=== PATIENT | male | born 1950 | race Caucasian/White ===

== ENCOUNTER → 2017-01-11 | Outpatient (REF) | payer MEDICAID ==
[2017-01-11 15:28] LABS: ALBUMIN 3.8 GM/DL (3.2-5.2); ALBUMIN/GLOBULIN RATIO 1.12 (1.00-1.93); ALKALINE PHOSPHATASE 57 U/L (45-117); ALT/SGPT 23 U/L (12-78); ANION GAP 7 MEQ/L (8-16); AST/SGOT 23 U/L (15-37); BILIRUBIN,TOTAL 0.5 MG/DL (0.2-1.0); BLOOD UREA NITROGEN 24 MG/DL (7-18); CALCIUM LEVEL 9.2 MG/DL (8.8-10.2); CARBON DIOXIDE LEVEL 28 MEQ/L (21-32); CHLORIDE LEVEL 109 MEQ/L (98-107); CREATININE FOR GFR 0.94 MG/DL (0.70-1.30); FREE T4 1.09 NG/DL (0.76-1.46); GLOMERULAR FILTRATION RATE > 60.0 (>49); GLUCOSE, FASTING 94 MG/DL (80-110); POTASSIUM SERUM 4.4 MEQ/L (3.5-5.1); SODIUM LEVEL 144 MEQ/L (136-145); TOTAL PROTEIN 7.2 GM/DL (6.4-8.2)
== END ==
LOC: M SFHCPLAZ 10:40
PROVIDERS: ATTEND Nurse Practitioner Family
DX: E78.5 Hyperlipidemia, unspecified (principal); I10 Essential (primary) hypertension; E03.9 Hypothyroidism, unspecified; E55.9 Vitamin D deficiency, unspecified

== ENCOUNTER → 2017-06-29 | Outpatient (REF) | payer MEDICAID ==
[2017-06-29 12:13] LABS: ALBUMIN 3.7 GM/DL (3.2-5.2); ALKALINE PHOSPHATASE 58 U/L (45-117); ALT/SGPT 22 U/L (12-78); ANION GAP 5 MEQ/L (8-16); AST/SGOT 23 U/L (7-37); BILIRUBIN,TOTAL 0.5 MG/DL (0.2-1.0); BLOOD UREA NITROGEN 21 MG/DL (7-18); CARBON DIOXIDE LEVEL 32 MEQ/L (21-32); CHLORIDE LEVEL 107 MEQ/L (98-107); CHOLESTEROL LEVEL 162 MG/DL (<200); CREATININE FOR GFR 0.88 MG/DL (0.70-1.30); GLOMERULAR FILTRATION RATE > 60.0 (>49); GLUCOSE, FASTING 79 MG/DL (80-110); POTASSIUM SERUM 4.4 MEQ/L (3.5-5.1); SODIUM LEVEL 144 MEQ/L (136-145); TOTAL PROTEIN 7.4 GM/DL (6.4-8.2); TRIGLYCERIDES LEVEL 116 MG/DL (<150)
== END ==
LOC: M SFHCPLAZ 08:38
PROVIDERS: ATTEND Nurse Practitioner Family
DX: I10 Essential (primary) hypertension (principal); E03.9 Hypothyroidism, unspecified; E78.5 Hyperlipidemia, unspecified; E55.9 Vitamin D deficiency, unspecified

== ENCOUNTER → 2018-04-24 | Outpatient (REF) | payer MEDICAID ==
[2018-04-24 13:02] LABS: ALBUMIN 3.8 GM/DL (3.2-5.2); ALBUMIN/GLOBULIN RATIO 1.06 (1.00-1.93); ALKALINE PHOSPHATASE 68 U/L (45-117); ALT/SGPT 23 U/L (12-78); ANION GAP 9 MEQ/L (8-16); AST/SGOT 24 U/L (7-37); BILIRUBIN,TOTAL 0.6 MG/DL (0.2-1.0); BLOOD UREA NITROGEN 22 MG/DL (7-18); CALCIUM LEVEL 8.5 MG/DL (8.8-10.2); CARBON DIOXIDE LEVEL 26 MEQ/L (21-32); CHLORIDE LEVEL 110 MEQ/L (98-107); FREE T4 1.15 NG/DL (0.76-1.46); GLOMERULAR FILTRATION RATE > 60.0 (>49); GLUCOSE, FASTING 72 MG/DL (70-100); POTASSIUM SERUM 4.5 MEQ/L (3.5-5.1); PSA SCREENING 0.49 NG/ML (< 4.0); SODIUM LEVEL 145 MEQ/L (136-145); THYROID STIMULATING HORMONE 0.723 uIU/ML (0.358-3.740); TOTAL 25(OH) VITAMIN D 18.6 NG/ML (30.0-100.0); TOTAL PROTEIN 7.4 GM/DL (6.4-8.2)
== END ==
LOC: M SFHCPLAZ 08:48
DX: E78.5 Hyperlipidemia, unspecified (principal); E03.9 Hypothyroidism, unspecified; Z12.5 Encounter for screening for malignant neoplasm of prostate; E55.9 Vitamin D deficiency, unspecified

== ENCOUNTER → 2018-10-22 | Outpatient (REF) | payer MEDICARE, MEDICAID ==
[2018-10-22 13:37] LABS: MALB URINE SIEMENS 76.4 MG/L; MAU/CREAT RATIO 20.2 MCG/MG (0.0-30.0)
[2018-10-22 13:38] LABS: ALBUMIN 3.8 GM/DL (3.2-5.2); ALT/SGPT 25 U/L (12-78); BILIRUBIN,TOTAL 0.4 MG/DL (0.2-1.0); BLOOD UREA NITROGEN 15 MG/DL (7-18); CALCIUM LEVEL 8.6 MG/DL (8.8-10.2); CARBON DIOXIDE LEVEL 28 MEQ/L (21-32); CHLORIDE LEVEL 110 MEQ/L (98-107); CHOLESTEROL LEVEL 174 MG/DL (<200); CHOLESTEROL RISK RATIO 3.625 (<5); CREATININE FOR GFR 0.78 MG/DL (0.70-1.30); GLOMERULAR FILTRATION RATE > 60.0 (>49); GLUCOSE, FASTING 91 MG/DL (70-100); HDL CHOLESTEROL 48 MG/DL (>40); LDL CHOLESTEROL 104 MG/DL (<100); NON-HDL-C 126 MG/DL; POTASSIUM SERUM 3.7 MEQ/L (3.5-5.1); SODIUM LEVEL 144 MEQ/L (136-145); TOTAL 25(OH) VITAMIN D 22.9 NG/ML (30.0-100.0); TRIGLYCERIDES LEVEL 110 MG/DL (<150)
== END ==
LOC: M SFHCPLAZ 09:28
PROVIDERS: ATTEND Nurse Practitioner Family
DX: I10 Essential (primary) hypertension (principal); E78.49 Other hyperlipidemia; Z87.891 Personal history of nicotine dependence; E55.9 Vitamin D deficiency, unspecified; E03.9 Hypothyroidism, unspecified; E66.9 Obesity, unspecified; Z68.35 Body mass index [BMI] 35.0-35.9, adult
CPT/HCPCS: 80053; 80061; 82043; 82306; 84443; G0463

== ENCOUNTER → 2019-07-26 | Outpatient (CLI) | payer MEDICARE, MEDICAID ==
--- NOTE | 2019-07-26 11:18 | REP ---
MRI LUMBAR SPINE WITHOUT CONTRAST: HISTORY: Other spondylosis. Rule out disc herniation. Comparison MRI study of the lumbar spine is from January 11, 2018. Comparison radiographs are from July 19, 2011. TECHNIQUE: Sagittal and axial T1- and T2-weighted scans are acquired in the usual fashion with and without fat saturation. Sequences include spin echo, turbo spin-echo, and STIR imaging sequences. MRI FINDINGS: Lumbar vertebral body heights are preserved. Cortical and medullary bone signal intensity is normal. There are small hemangiomas in the L4 vertebral body, one on each side. This is unchanged. The tip of the conus medullaris remains normal in position and appearance at L1. No extra vertebral abnormality is appreciated. Normal caliber aorta. Axial and sagittal images taken at the L1-L2 disc level demonstrate mild degenerative narrowing of the disc. There is no evidence of disc bulging or protrusion posteriorly. There is anterior discogenic spurring on the right. At L2-3, there is degenerative narrowing and decreased signal intensity. There is diffuse disc bulging effacing the ventral subarachnoid space. There is right foraminal and right lateral disc bulging. There is borderline canal size due to disc bulging and dorsally positioned epidural fat. Midline AP dimension of the thecal sac is 9.5 mm. At L3-L4, there is diffuse disc bulging effacing the ventral margin of the thecal sac. There is mild bilateral foraminal disc bulging. There is mild central canal stenosis at L3-4 due to disc bulging, ligamentum flavum hypertrophy, and mild facet hypertrophy. There is dorsal epidural fat which participates. The mid line AP dimension of the thecal sac is 8.4 mm. The findings are unchanged and L3-4 from the prior study. At L4-L5, there is diffuse disc bulging indenting the ventral margin of the thecal sac. There is right sided mild foraminal narrowing due to disc bulging and facet hypertrophy. Bilateral ligamentum flavum and facet hypertrophy is present. No central canal stenosis is seen however. Findings are felt to be unchanged. At L5-S1, there is bilateral facet hypertrophy. Central disc bulging is present unchanged. No spinal stenosis is seen. No definite foraminal narrowing is seen. IMPRESSION: Degenerative spondylosis changes. Findings unchanged from January 11, 2018. Multilevel foraminal disc bulging. Mild central canal stenosis at L3-4. Electronically Signed by Nawaf Spaulding MD 07/26/2019 11:28 A
== END ==
LOC: M RAD 09:19
PROVIDERS: ATTEND Physical Medicine & Rehabilitation
DX: M47.896 Other spondylosis, lumbar region (principal)

== ENCOUNTER → 2019-08-05 | Outpatient (CLI) | payer MEDICARE, MEDICAID ==
[2019-08-05 17:51] LABS: PLATELET COUNT, AUTOMATED 232 10^3/uL (150-450)
[2019-08-05 17:53] LABS: INR 1.05; PROTHROMBIN TIME 13.4 SECONDS (11.8-14.0)
[2019-08-05 17:54] LABS: PARTIAL THROMBOPLASTIN TIME 31.5 SECONDS (25.0-38.4)
[2019-08-05 18:01] LABS: BLOOD UREA NITROGEN 22 MG/DL (7-18); C REACTIVE PROTEIN QUANTITATIV < 0.30 MG/DL (0.00-0.30); CREATININE FOR GFR 0.85 MG/DL (0.70-1.30); GLOMERULAR FILTRATION RATE > 60.0 (>49); RHEUMATOID FACTOR QUANT < 10.0 IU/ML (<15.0)
== END ==
LOC: M PLALAB 14:53
PROVIDERS: ATTEND Physician Assistant
DX: Z01.812 Encounter for preprocedural laboratory examination (principal); M51.27 Other intervertebral disc displacement, lumbosacral region; M47.817 Spondylosis without myelopathy or radiculopathy, lumbosacral region; Z79.01 Long term (current) use of anticoagulants

== ENCOUNTER → 2019-09-03 | Outpatient (REF) | payer MEDICARE, MEDICAID | LOC: CANPREREF → M SFHCPLAZ 08:31 | PROVIDERS: ATTEND Family Medicine | DX: E53.8 Deficiency of other specified B group vitamins (principal); E55.9 Vitamin D deficiency, unspecified ==

== ENCOUNTER → 2019-09-29 | Outpatient (REF) | payer MEDICARE, MEDICAID ==
[2019-09-29 10:33] LABS: TOTAL 25(OH) VITAMIN D 29.4 NG/ML (30.0-100.0)
== END ==
LOC: M SFHCPLAZ 08:14
PROVIDERS: ATTEND Family Medicine
DX: E53.8 Deficiency of other specified B group vitamins (principal); E55.9 Vitamin D deficiency, unspecified

== ENCOUNTER → 2019-12-22 | Outpatient (CLI) | payer MEDICARE, MEDICAID ==
--- NOTE | 2019-12-25 10:07 | ECHO ---
DATE OF STUDY: 12/22/2019 DATE OF : 1950 AGE: 69 GENDER: Male HEIGHT: 70 inches WEIGHT: 222 pounds BODY SURFACE AREA: 2.17 m2 OUTPATIENT REFERRING PHYSICIAN: Dr. Matthew Dee INDICATION: Edema. MEASUREMENTS 2-D Measurements: RV: 3.8 cm LV: 3.9 cm Septum: 1.2 cm Posterior wall: 1.2 cm Aortic root: 3.6 cm LA: 4.6 cm LVEF: 70% Doppler Measurements: AV: 1.03 m/s LVOT: 1.02 m/s LVOT diameter: 2.1 cm MV - E 58 A 52 EA ratio 1 Early mitral deceleration time: 218 ms E prime medial: 7.7 A prime medial: 9.7 E A prime lateral: 7.4 Average E/E prime ratio: 7.7/ PCWP 11.4 mmHg PV: 0.7 m/s Pulmonary artery acceleration time: 137 ms RVSP: 27 mmHg IVC: 1.8 cm COMMENTS: Sinus bradycardia without intraventricular conduction disturbance. Technically challenging study in light of the patient's body habitus, but diagnostically useful information was still obtained. M-mode and two-dimensional echocardiography was performed with pulsed, continuous wave, color flow and tissue Doppler studies. Borderline concentric left ventricular hypertrophy with hyperkinetic wall motion. Mildly dilated left atrium with current normal Doppler assessment of LV diastolic function and estimated mean left atrial pressure. Normal right heart chamber sizes and motion and current estimated pulmonary arterial pressure. Normal IVC size and collapse against an elevated central venous pressure. Normal aortic root size. Mild aortic valvular sclerosis without stenosis, but mild insufficiency. Mild degenerative changes of the mitral valvular apparatus without inflow tract obstruction, but only mild insufficiency. Normal appearing tricuspid valve with mild insufficiency. No apparent cardiac mass or pericardial effusion.
== END ==
LOC: M CARPUL 08:17
PROVIDERS: ATTEND Family Medicine
DX: R60.0 Localized edema (principal)

== ENCOUNTER → 2020-02-02 | Outpatient (CLI) | payer MEDICARE, MEDICAID ==
[2020-02-02 10:56] LABS: HEMATOCRIT 41.2 % (42.0-52.0); HEMOGLOBIN 13.2 g/dl (13.5-17.5); MEAN CORPUSCULAR HEMOGLOBIN 30.1 pg (27.0-33.0); MEAN CORPUSCULAR VOLUME 93.8 fl (80.0-96.0); PLATELET COUNT, AUTOMATED 211 10^3/uL (150-450); RED BLOOD COUNT 4.39 10^6/uL (4.30-6.10); WHITE BLOOD COUNT 5.6 10^3/uL (4.0-10.0)
[2020-02-02 11:25] LABS: ALT/SGPT 15 U/L (12-78); BILIRUBIN,TOTAL 0.5 MG/DL (0.2-1.0); BLOOD UREA NITROGEN 21 MG/DL (7-18); CALCIUM LEVEL 9.1 MG/DL (8.8-10.2); CARBON DIOXIDE LEVEL 29 MEQ/L (21-32); CHLORIDE LEVEL 106 MEQ/L (98-107); CREATININE FOR GFR 0.83 MG/DL (0.70-1.30); GLOMERULAR FILTRATION RATE > 60.0 (>49); GLUCOSE, FASTING 84 MG/DL (70-100); POTASSIUM SERUM 3.8 MEQ/L (3.5-5.1); SODIUM LEVEL 141 MEQ/L (136-145); TOTAL PROTEIN 7.4 GM/DL (6.4-8.2)
== END ==
LOC: M PLALAB 08:27
PROVIDERS: ATTEND Student in an Organized Health Care Education/Training Program
DX: R60.0 Localized edema (principal)

== ENCOUNTER → 2020-10-15 | Outpatient (CLI) | payer MEDICARE, MEDICAID ==
[2020-10-15 11:19] LABS: PLATELET COUNT, AUTOMATED 208 10^3/uL (150-450)
[2020-10-15 11:26] LABS: INR 1.06
[2020-10-15 11:27] LABS: PARTIAL THROMBOPLASTIN TIME 29.8 SECONDS (24.2-38.5)
== END ==
LOC: M PLALAB 09:28
PROVIDERS: ATTEND Physical Medicine & Rehabilitation
DX: Z01.812 Encounter for preprocedural laboratory examination (principal)

== ENCOUNTER → 2021-04-08 | Outpatient (CLI) | payer MEDICARE, MEDICAID ==
[2021-04-08 11:24] LABS: PLATELET COUNT, AUTOMATED 199 10^3/uL (150-450)
[2021-04-08 11:35] LABS: INR 1.03; PROTHROMBIN TIME 13.9 SECONDS (12.7-14.5)
[2021-04-08 11:36] LABS: PARTIAL THROMBOPLASTIN TIME 33.8 SECONDS (25.9-37.0)
== END ==
LOC: M PLALAB 08:19
PROVIDERS: ATTEND Physical Medicine & Rehabilitation
DX: Z01.812 Encounter for preprocedural laboratory examination (principal)

== ENCOUNTER 2021-09-22 08:32 | Emergency (ER) | payer MEDICARE, MEDICAID ==
[~2021-09-22] VITALS: Ht 177.8 cm; Wt 90.9 kg
[2021-09-22] MEDS ORDERED: CARB25TA9 (08:40)
[2021-09-22] MEDS ORDERED: OFLO3OPSO (08:40)
[2021-09-22] MEDS ORDERED: TRAM50TA2 (08:40)
[2021-09-22] MEDS ORDERED: FLUO1OPD (08:40)
[2021-09-22] MEDS ORDERED: ATOR40TA75 (08:40)
[2021-09-22] MEDS ORDERED: DORZ2SOL5 (08:40)
[2021-09-22] MEDS ORDERED: PANT20TA6 (08:40)
[2021-09-22] MEDS ORDERED: GABA-282 (08:40)
[2021-09-22] MEDS ORDERED: PROP60CA (08:40)
[2021-09-22] MEDS ORDERED: PRIM50TA6 (08:40)
[2021-09-22] MEDS ORDERED: LEVO75TA4 (08:40)
[2021-09-22] MEDS ORDERED: PRAM1TAB7 (08:40)
[2021-09-22] MEDS ORDERED: LOTE5DRO3 (08:40)
[2021-09-22] MEDS ORDERED: CYCL-707 (08:40)
[2021-09-22] MEDS ORDERED: HYDR-3713 (08:40)
[2021-09-22] MEDS ORDERED: ONDANSETRON 4MG/2ML VIAL IV ONE ×2 (09:05→11:25)
[2021-09-22] MEDS ORDERED: NS 1,000 ML IV ONE (09:05)
[2021-09-22] MEDS ORDERED: MORPHINE 4 MG/ML 1ML VIAL/SYRINGE (J2270) IV ONE (09:05)
[2021-09-22 09:22] LABS: BASO # 0.1 10^3/uL (0.0-0.2); EOS # 1.3 10^3/uL (0.0-0.5); EOS % 14.7 % (0.0-3.0); HEMATOCRIT 53.8 % (42.0-52.0); HEMOGLOBIN 17.6 g/dl (13.5-17.5); LYMPH # 1.3 10^3/uL (1.5-5.0); LYMPH % 14.7 % (24.0-44.0); MEAN CORPUSCULAR HEMOGLOBIN 29.7 pg (27.0-33.0); MEAN CORPUSCULAR HGB CONC 32.7 g/dl (32.0-36.5); MEAN CORPUSCULAR VOLUME 90.9 fl (80.0-96.0); MONO % 11.7 % (2.0-8.0); NEUTROPHILS # 4.7 10^3/uL (1.5-8.5); NEUTROPHILS % 54.1 % (36.0-66.0); PLATELET COUNT, AUTOMATED 278 10^3/uL (150-450); RED BLOOD COUNT 5.92 10^6/uL (4.30-6.10); WHITE BLOOD COUNT 8.7 10^3/uL (4.0-10.0)
[2021-09-22 09:31] LABS: ALBUMIN 3.8 GM/DL (3.2-5.2); ALT/SGPT 18 U/L (12-78); BILIRUBIN,DIRECT < 0.1 MG/DL (0.0-0.2); BILIRUBIN,TOTAL 0.6 MG/DL (0.2-1.0); BLOOD UREA NITROGEN 20 MG/DL (7-18); CALCIUM LEVEL 9.5 MG/DL (8.8-10.2); CARBON DIOXIDE LEVEL 30 MEQ/L (21-32); CHLORIDE LEVEL 106 MEQ/L (98-107); CREATININE FOR GFR 1.32 MG/DL (0.70-1.30); GLOMERULAR FILTRATION RATE 57.3 (>49); GLUCOSE, FASTING 134 MG/DL (70-100); LIPASE 82 U/L (73-393); POTASSIUM SERUM 3.6 MEQ/L (3.5-5.1); SODIUM LEVEL 142 MEQ/L (136-145)
[2021-09-22] MEDS ORDERED: ISOVUE-370 76% 100ML VIAL As Ordered ONE (10:03)
[2021-09-22] MEDS: GASTROGRAFIN SOLUTION 30ML PO SCH ×2 (10:15→10:16)
[2021-09-22 13:00] VITALS: BP 104/56
[2021-09-22] MEDS ORDERED: ONDA4TAB6 PO (13:46)
== END 2021-09-22 13:59 | disposition home or self-care (01) ==
LOC: EDBD 08:32 → M ED 08:32
DX: K52.9 Noninfective gastroenteritis and colitis, unspecified (principal); E78.5 Hyperlipidemia, unspecified; K21.9 Gastro-esophageal reflux disease without esophagitis
CPT/HCPCS: 74177; 80048; 80076; 83690; 85025; 93041; 96374; 99285; J2270; J2405; Q9963; Q9967

== ENCOUNTER → 2021-10-03 | Outpatient (CLI) | payer MEDICARE, MEDICAID ==
[~2021-10-03] MED LIST: ATOR40TA75; CARB25TA9; CYCL-707; DORZ2SOL5; FLUO1OPD; GABA-282; HYDR-3713; LEVO75TA4; LOTE5DRO3; OFLO3OPSO; ONDA4TAB6 PO; PANT20TA6; PRAM1TAB7; PRIM50TA6; PROP60CA; TRAM50TA2
[2021-10-03 15:29] LABS: HEMATOCRIT 39.1 % (42.0-52.0); MEAN CORPUSCULAR HEMOGLOBIN 29.8 pg (27.0-33.0); MEAN CORPUSCULAR HGB CONC 33.2 g/dl (32.0-36.5); MEAN CORPUSCULAR VOLUME 89.7 fl (80.0-96.0); PLATELET COUNT, AUTOMATED 189 10^3/uL (150-450); RED BLOOD COUNT 4.36 10^6/uL (4.30-6.10); WHITE BLOOD COUNT 8.2 10^3/uL (4.0-10.0)
[2021-10-03 15:55] LABS: HEMOGLOBIN A1c 5.5 %
[2021-10-03 16:05] LABS: ALBUMIN 3.1 GM/DL (3.2-5.2); ALT/SGPT 9 U/L (12-78); BILIRUBIN,TOTAL 0.4 MG/DL (0.2-1.0); BLOOD UREA NITROGEN 13 MG/DL (7-18); CALCIUM LEVEL 8.8 MG/DL (8.8-10.2); CARBON DIOXIDE LEVEL 29 MEQ/L (21-32); CHLORIDE LEVEL 109 MEQ/L (98-107); CHOLESTEROL LEVEL 151 MG/DL (<200); CHOLESTEROL RISK RATIO 4.441 (<5); CREATININE FOR GFR 0.68 MG/DL (0.70-1.30); GLOMERULAR FILTRATION RATE > 60.0 (>49); GLUCOSE, FASTING 90 MG/DL (70-100); HDL CHOLESTEROL 34 MG/DL (>40); LDL CHOLESTEROL 89 MG/DL (<100); NON-HDL-C 117 MG/DL; POTASSIUM SERUM 4.1 MEQ/L (3.5-5.1); SODIUM LEVEL 144 MEQ/L (136-145); TRIGLYCERIDES LEVEL 142 MG/DL (<150)
[2021-10-03 16:07] LABS: TOTAL 25(OH) VITAMIN D 61.5 NG/ML (30.0-100.0)
== END ==
LOC: M PLALAB 12:08
PROVIDERS: ATTEND Student in an Organized Health Care Education/Training Program
DX: E55.9 Vitamin D deficiency, unspecified (principal); I10 Essential (primary) hypertension; K21.9 Gastro-esophageal reflux disease without esophagitis; E78.49 Other hyperlipidemia; R73.01 Impaired fasting glucose; E03.9 Hypothyroidism, unspecified

== ENCOUNTER → 2021-10-03 | Outpatient (REF) | payer MEDICARE, MEDICAID | LOC: M SFHCPLAZ 11:45 | PROVIDERS: ATTEND Family Medicine | DX: E55.9 Vitamin D deficiency, unspecified (principal); I10 Essential (primary) hypertension; K21.9 Gastro-esophageal reflux disease without esophagitis; E78.49 Other hyperlipidemia; R73.01 Impaired fasting glucose; E03.9 Hypothyroidism, unspecified ==

== ENCOUNTER 2021-12-30 15:26 | Emergency (ER) | payer MEDICARE, MEDICAID ==
[~2021-12-30] VITALS: Ht 177.8 cm; Wt 90.0 kg
[2021-12-30 18:44] LABS: BASO % 0.3 % (0.0-1.0); EOS # 0.4 10^3/uL (0.0-0.5); EOS % 5.6 % (0.0-3.0); HEMATOCRIT 36.4 % (42.0-52.0); HEMOGLOBIN 12.3 g/dl (13.5-17.5); LYMPH # 1.5 10^3/uL (1.5-5.0); LYMPH % 20.9 % (24.0-44.0); MEAN CORPUSCULAR HEMOGLOBIN 30.8 pg (27.0-33.0); MEAN CORPUSCULAR HGB CONC 33.8 g/dl (32.0-36.5); MONO # 0.6 10^3/uL (0.0-0.8); NEUTROPHILS # 4.6 10^3/uL (1.5-8.5); NEUTROPHILS % 63.8 % (36.0-66.0); PLATELET COUNT, AUTOMATED 196 10^3/uL (150-450); WHITE BLOOD COUNT 7.1 10^3/uL (4.0-10.0)
[2021-12-30 19:20] LABS: BLOOD UREA NITROGEN 14 MG/DL (7-18); CALCIUM LEVEL 9.4 MG/DL (8.8-10.2); CARBON DIOXIDE LEVEL 30 MEQ/L (21-32); CHLORIDE LEVEL 108 MEQ/L (98-107); CREATININE FOR GFR 0.71 MG/DL (0.70-1.30); FREE T4 1.07 NG/DL (0.76-1.46); GLOMERULAR FILTRATION RATE > 60.0 (>49); GLUCOSE, FASTING 98 MG/DL (70-100); MAGNESIUM LEVEL 2.3 MG/DL (1.8-2.4); POTASSIUM SERUM 3.7 MEQ/L (3.5-5.1); SODIUM LEVEL 144 MEQ/L (136-145); THYROID STIMULATING HORMONE 0.854 uIU/ML (0.358-3.740)
[2021-12-30 19:30] VITALS: BP 128/66
== END 2021-12-30 19:44 | disposition home or self-care (01) ==
LOC: M ED 15:26
DX: R29.6 Repeated falls (principal); R42 Dizziness and giddiness; I10 Essential (primary) hypertension; G20 Parkinson's disease; Z79.52 Long term (current) use of systemic steroids; Z79.899 Other long term (current) drug therapy

== ENCOUNTER → 2022-07-07 | Outpatient (CLI) | payer MEDICARE, MEDICAID ==
[2022-07-07 15:22] LABS: HEMOGLOBIN 12.3 g/dl (13.5-17.5); MEAN CORPUSCULAR HEMOGLOBIN 29.5 pg (27.0-33.0); MEAN CORPUSCULAR HGB CONC 31.5 g/dl (32.0-36.5); MEAN CORPUSCULAR VOLUME 93.5 fl (80.0-96.0); PLATELET COUNT, AUTOMATED 178 10^3/uL (150-450); RED BLOOD COUNT 4.17 10^6/uL (4.30-6.10); WHITE BLOOD COUNT 7.3 10^3/uL (4.0-10.0)
[2022-07-07 15:42] LABS: ALBUMIN 3.1 G/DL (3.2-5.2); ALKALINE PHOSPHATASE 68 U/L (46-116); ALT/SGPT < 9 U/L (7.0-40); AST/SGOT 22 U/L (<34); BILIRUBIN,TOTAL 0.3 MG/DL (0.3-1.2); BLOOD UREA NITROGEN 15 MG/DL (9-23); CALCIUM LEVEL 8.5 MG/DL (8.3-10.6); CARBON DIOXIDE LEVEL 28 MMOL/L (20-31); CHLORIDE LEVEL 106 MMOL/L (98-107); CHOLESTEROL LEVEL 145 MG/DL (<200); CHOLESTEROL RISK RATIO 3.44 (<5); CREATININE FOR GFR 0.68 MG/DL (0.70-1.30); GLOMERULAR FILTRATION RATE > 60.0 (>49); GLUCOSE, FASTING 110 MG/DL (74-106); HDL CHOLESTEROL 42.1 MG/DL (>40); LDL CHOLESTEROL 75.5 MG/DL (<100); NON-HDL-C 103 MG/DL; POTASSIUM SERUM 4.3 MMOL/L (3.5-5.1); SODIUM LEVEL 144 MMOL/L (136-145); TOTAL PROTEIN 6.2 G/DL (5.7-8.2); TRIGLYCERIDES LEVEL 137 MG/DL (<150)
[2022-07-07 15:44] LABS: TOTAL 25(OH) VITAMIN D 53.4 NG/ML (20.0-100.0)
[2022-07-07 15:45] LABS: THYROID STIMULATING HORMONE 1.414 uIU/ML (0.55-4.78)
[2022-07-07 16:19] LABS: HEMOGLOBIN A1c 5.3 % (4.0-6.0)
== END ==
LOC: M PLALAB 14:41
PROVIDERS: ATTEND Student in an Organized Health Care Education/Training Program
DX: E55.9 Vitamin D deficiency, unspecified (principal); E03.9 Hypothyroidism, unspecified; R73.01 Impaired fasting glucose; E78.5 Hyperlipidemia, unspecified; Z79.899 Other long term (current) drug therapy

== ENCOUNTER → 2022-08-07 | Outpatient (CLI) | payer MEDICARE, MEDICAID ==
[~2022-08-07] MED LIST changes: +GASTROGRAFIN SOLUTION 30ML As Ordered ONE; +ISOVUE-370 76% 100ML VIAL As Ordered ONE
== END ==
LOC: M RAD 07-21 13:50
PROVIDERS: ATTEND Student in an Organized Health Care Education/Training Program
DX: R10.32 Left lower quadrant pain (principal)
CPT/HCPCS: 74177; Q9963; Q9967

== ENCOUNTER 2023-02-23 12:06 | Emergency (ER) | payer MEDICARE, MEDICAID ==
[~2023-02-23] VITALS: Ht 180.3 cm; Wt 95.5 kg
[~2023-02-23 12:06] MED LIST changes: -GASTROGRAFIN SOLUTION 30ML As Ordered ONE; -ISOVUE-370 76% 100ML VIAL As Ordered ONE; -LOTE5DRO3; +LOTE5DRO9; -OFLO3OPSO; +OFLO5DRO
[2023-02-23 12:24] VITALS: TEMP 96
[2023-02-23] MEDS ORDERED: GABAPENTIN 300 MG CAP PO STA (13:02)
[2023-02-23] MEDS ORDERED: SINEMET 25-100 MG TAB PO STA (13:02)
[2023-02-23 15:24] VITALS: O2SAT 94
[2023-02-23 15:34] VITALS: BP 151/79; O2SAT 97
== END 2023-02-23 15:41 | disposition home or self-care (01) ==
LOC: M ED 12:06
DX: S70.02XA Contusion of left hip, initial encounter (principal); S90.01XA Contusion of right ankle, initial encounter; S90.02XA Contusion of left ankle, initial encounter; W19.XXXA Unspecified fall, initial encounter; Y92.009 Unspecified place in unspecified non-institutional (private) residence as the place of occurrence of the external cause; Y93.89 Activity, other specified; Y99.8 Other external cause status; G20 Parkinson's disease; E78.5 Hyperlipidemia, unspecified; K21.9 Gastro-esophageal reflux disease without esophagitis; Z79.899 Other long term (current) drug therapy

== ENCOUNTER 2023-03-12 10:34 | Inpatient (IN) | payer MEDICARE, MEDICAID ==
[~2023-03-12] VITALS: Ht 177.8 cm; Wt 86.5 kg
[~2023-03-12 10:34] MED LIST changes: -ATOR40TA75; +ATOR40TA75 PO; -CARB25TA9; +CARB25TA9 PO; -CYCL-707; +CYCL-707 PO; -DORZ2SOL5; +DORZ2SOL5 OU; -FLUO1OPD; +FLUO1OPD OU; -GABA-282; +GABA-282 PO; -HYDR-3713; +HYDR-3713 PO; -LEVO75TA4; +LEVO75TA4 PO; -OFLO5DRO; +OFLO5DRO OU; -PANT20TA6; +PANT20TA6 PO; -PRAM1TAB7; +PRAM1TAB7 PO; -PRIM50TA6; +PRIM50TA6 PO; -PROP60CA; +PROP60CA PO; -TRAM50TA2; +TRAM50TA2 PO
[2023-03-12 12:38] LABS: HEMATOCRIT 48.1 % (42.0-52.0); HEMOGLOBIN 16.1 g/dl (13.5-17.5); MEAN CORPUSCULAR HEMOGLOBIN 30.1 pg (27.0-33.0); MEAN CORPUSCULAR HGB CONC 33.5 g/dl (32.0-36.5); MEAN CORPUSCULAR VOLUME 90.1 fl (80.0-96.0); PLATELET COUNT, AUTOMATED 290 10^3/uL (150-450); RED BLOOD COUNT 5.34 10^6/uL (4.30-6.10); WHITE BLOOD COUNT 10.1 10^3/uL (4.0-10.0)
[2023-03-12] MEDS ORDERED: ONDANSETRON 4MG 2ML VIAL IV ONE ×2 (12:40→15:20)
[2023-03-12 13:01] LABS: LIPASE 19 U/L (12-53)
[2023-03-12 13:03] LABS: ALBUMIN 3.4 G/DL (3.2-5.2); ALKALINE PHOSPHATASE 101 U/L (46-116); ALT/SGPT 11 U/L (7.0-40); AST/SGOT < 8 U/L (<34); BILIRUBIN,DIRECT 0.2 MG/DL (<0.4); BILIRUBIN,TOTAL 0.4 MG/DL (0.3-1.2); BLOOD UREA NITROGEN 32 MG/DL (9-23); CALCIUM LEVEL 8.9 MG/DL (8.3-10.6); CARBON DIOXIDE LEVEL 28 MMOL/L (20-31); CHLORIDE LEVEL 103 MMOL/L (98-107); GLOMERULAR FILTRATION RATE > 60.0 (>42); GLUCOSE, FASTING 114 MG/DL (74-106); POTASSIUM SERUM 3.6 MMOL/L (3.5-5.1); SODIUM LEVEL 140 MMOL/L (136-145); TOTAL PROTEIN 6.7 G/DL (5.7-8.2)
[2023-03-12 13:11] LABS: ATYPICAL LYMPH 9 % (0-5); EOSINOPHILS 7 % (0-3); LYMPHOCYTES 12 % (16-44); MONOCYTES 8 % (0-5); NEUTROPHILS 61 % (28-66); PLATELET ESTIMATE NORMAL (NORMAL)
[2023-03-12] MEDS: NS 1,000 ML IV SCH ×2 (13:27→22:40)
[2023-03-12] MEDS: GASTROGRAFIN SOLUTION 30ML PO SCH ×2 (13:58→14:35)
[2023-03-12] MEDS ORDERED: ISOVUE-370 76% 100ML VIAL As Ordered ONE (15:09)
[2023-03-12 16:33] LABS: CK-MB VALUE MASS 5.4 NG/ML (<3.6); CPK CREATINE PHOSPHOKINASE 131 U/L (46-171); MAGNESIUM LEVEL 1.5 MG/DL (1.8-2.4); MB/CK RELATIVE INDEX 4.12 (< OR =4); PHOSPHORUS LEVEL 4.2 MG/DL (2.4-5.1)
[2023-03-12] MEDS ORDERED: MAGNESIUM OXIDE 400MG TAB (MAG-OX) PO ONE (16:40)
[2023-03-12] MEDS ORDERED: GABAPENTIN 300 MG CAP PO ONE (16:45)
[2023-03-12] MEDS ORDERED: **NOTE PATIENT COMMENT** MISC XX SCH (17:20)
[2023-03-12] MEDS ORDERED: ACETAMINOPHEN 500 MG TAB PO PRN (17:30)
[2023-03-12] MEDS ORDERED: NORCO, ANEXSIA 5/325MG TABLET (HYDROcodone/ACETAMINOPHEN) PO PRN ×2 (17:30)
[2023-03-12] MEDS: LR 1,000 ML IV SCH (17:53)
[2023-03-12 18:32] LABS: RSV AMPLIFICATION NEGATIVE (NEGATIVE)
[2023-03-12] MEDS ORDERED: MED REC IN PROGRESS XX SCH (19:00)
[2023-03-12] MEDS ORDERED: CYCLOBENZAPRINE 10MG TABLET PO PRN (21:00)
[2023-03-12 21:06] VITALS: BP 155/81; TEMP 98.1; O2SAT 99
[2023-03-12] MEDS ORDERED: LOTE5DRO9 OU (22:05)
[2023-03-12] MEDS ORDERED: HYPR15DR3 OP (22:11)
[2023-03-12 22:16] VITALS: BP 147/83; O2SAT 97
[2023-03-12] MEDS ORDERED: HOME MED LIST COMPLETE! XX SCH (22:25)
[2023-03-12 23:00] VITALS: BP 177/90; O2SAT 98
[2023-03-12] MEDS: MAG SULF 1GM/100ML (MAG RUN) 1 GM in IV 1 EA IV SCH (23:49)
[2023-03-12 23:51] LABS: MB/CK RELATIVE INDEX 4.54 (< OR =4)
[2023-03-12] MEDS: GABAPENTIN 300 MG CAP PO SCH (23:56)
[2023-03-13] VITALS: BP 138/81; TEMP 97.5; O2SAT 98
[2023-03-13] MEDS: PRAMIPEXOLE 0.25 MG TAB PO SCH ×4 (00:49→21:00)
[2023-03-13] MEDS: PRIMIDONE 50MG TAB PO SCH ×3 (00:49→21:00)
[2023-03-13] MEDS ORDERED: REFR0.5D8 OU (01:01)
[2023-03-13] MEDS: MAG SULF 1GM/100ML (MAG RUN) 1 GM in IV 1 EA IV SCH (01:02)
[2023-03-13] MEDS: LR 1,000 ML IV SCH ×3 (02:48→18:34)
[2023-03-13 03:35] LABS: POTASSIUM SERUM 3.2 MMOL/L (3.5-5.1)
[2023-03-13 04:00] VITALS: BP 102/57; TEMP 97.9; O2SAT 97
[2023-03-13] MEDS: KCL 10MEQ/100ML SWI (KRUN) 10 MEQ in IV 1 EA IV SCH ×3 (04:50→08:34)
[2023-03-13] MEDS: SINEMET 25-100 MG TAB PO SCH ×4 (06:30→20:00)
[2023-03-13] MEDS: LEVOTHYROXINE 75MCG TABLET (0.075MG) PO SCH (06:30)
[2023-03-13] MEDS ORDERED: FIDA200TA PO (07:00)
[2023-03-13 07:23] LABS: HEMATOCRIT 39.4 % (42.0-52.0); MEAN CORPUSCULAR HEMOGLOBIN 30.1 pg (27.0-33.0); MEAN CORPUSCULAR HGB CONC 33.5 g/dl (32.0-36.5); PLATELET COUNT, AUTOMATED 230 10^3/uL (150-450); RED BLOOD COUNT 4.38 10^6/uL (4.30-6.10); WHITE BLOOD COUNT 8.1 10^3/uL (4.0-10.0)
[2023-03-13 07:24] LABS: HEMOGLOBIN 13.2 g/dl (13.5-17.5)
[2023-03-13 07:52] LABS: BLOOD UREA NITROGEN 25 MG/DL (9-23); CALCIUM LEVEL 7.6 MG/DL (8.3-10.6); CARBON DIOXIDE LEVEL 29 MMOL/L (20-31); CHLORIDE LEVEL 102 MMOL/L (98-107); CK-MB VALUE MASS 2.6 NG/ML (<3.6); CPK CREATINE PHOSPHOKINASE 67 U/L (46-171); CREATININE FOR GFR 0.67 MG/DL (0.70-1.30); GLOMERULAR FILTRATION RATE > 60.0 (>42); GLUCOSE, FASTING 116 MG/DL (74-106); MAGNESIUM LEVEL 1.9 MG/DL (1.8-2.4); MB/CK RELATIVE INDEX 3.88 (< OR =4); POTASSIUM SERUM 3.8 MMOL/L (3.5-5.1); SODIUM LEVEL 139 MMOL/L (136-145)
[2023-03-13 08:28] VITALS: BP 135/74; TEMP 96.6; O2SAT 96
[2023-03-13] MEDS: ATORVASTATIN 20 MG TAB PO SCH (08:28)
[2023-03-13] MEDS: GABAPENTIN 300 MG CAP PO SCH ×3 (08:28→21:00)
[2023-03-13] MEDS: PROPRANOLOL 60MG LA CAP PO SCH (08:29)
[2023-03-13] MEDS: ENOXAPARIN 40MG/0.4ML SYRINGE (J1650 PER 10MG) SC SCH (08:30)
[2023-03-13] MEDS: PANTOPRAZOLE 20 MG TAB PO SCH (08:34)
[2023-03-13] MEDS: FIDAXOMICIN 200 MG TAB (DIFICID) PO SCH ×2 (10:37→21:00)
[2023-03-13 11:00] VITALS: BP 107/58; TEMP 97.3; O2SAT 99
[2023-03-13] MEDS ORDERED: POLYVINYL ALCOHOL OPHTH SOLN 15ML (LIQUITEARS) OU PRN (12:45)
[2023-03-13] MEDS: ONDANSETRON 4MG 2ML VIAL IV PRN ×2 (13:42→18:34)
[2023-03-13 15:44] VITALS: BP 133/72; TEMP 96.3; O2SAT 96
[2023-03-13 16:36] LABS: CK-MB VALUE MASS 2.7 NG/ML (<3.6)
[2023-03-13 16:39] LABS: MB/CK RELATIVE INDEX 4.02 (< OR =4)
[2023-03-13 19:56] VITALS: BP 130/62; TEMP 96.9; O2SAT 77; O2SAT 97
[2023-03-13] MEDS ORDERED: PROCHLORPERAZINE 10MG 2ML VIAL IV PRN (20:10)
[2023-03-13] MEDS: OFLOXACIN 0.3 % (OCUFLOX) OPTH SOL 5ML OU SCH (21:00)
[2023-03-13] MEDS: COSOPT OCUMETER PLUS 10ML (DORZOLAMIDE/TIMOLOL) OU SCH (21:00)
[2023-03-13] MEDS: FLUOROMETHOLONE 0.1% OPHTH SUSP 5ML BTL OU SCH (21:00)
[2023-03-14] MEDS: LR 1,000 ML IV SCH (01:53)
[2023-03-14 04:00] VITALS: BP 110/67; TEMP 96.9; O2SAT 100
[2023-03-14] MEDS: LEVOTHYROXINE 75MCG TABLET (0.075MG) PO SCH (05:12)
[2023-03-14 05:17] LABS: HEMATOCRIT 42.3 % (42.0-52.0); HEMOGLOBIN 13.9 g/dl (13.5-17.5); MEAN CORPUSCULAR HGB CONC 32.9 g/dl (32.0-36.5); MEAN CORPUSCULAR VOLUME 91.2 fl (80.0-96.0); PLATELET COUNT, AUTOMATED 143 10^3/uL (150-450); RED BLOOD COUNT 4.64 10^6/uL (4.30-6.10)
[2023-03-14] MEDS: SINEMET 25-100 MG TAB PO SCH ×4 (06:10→17:58)
[2023-03-14 06:18] LABS: BLOOD UREA NITROGEN 13 MG/DL (9-23); CALCIUM LEVEL 8.4 MG/DL (8.3-10.6); CARBON DIOXIDE LEVEL 29 MMOL/L (20-31); CHLORIDE LEVEL 105 MMOL/L (98-107); CREATININE FOR GFR 0.58 MG/DL (0.70-1.30); GLOMERULAR FILTRATION RATE > 60.0 (>42); GLUCOSE, FASTING 99 MG/DL (74-106); MAGNESIUM LEVEL 1.9 MG/DL (1.8-2.4); SODIUM LEVEL 141 MMOL/L (136-145)
[2023-03-14 08:00] VITALS: BP 120/62; TEMP 97.4; O2SAT 95
[2023-03-14] MEDS: OFLOXACIN 0.3 % (OCUFLOX) OPTH SOL 5ML OU SCH ×2 (08:46→20:12)
[2023-03-14] MEDS: FLUOROMETHOLONE 0.1% OPHTH SUSP 5ML BTL OU SCH ×2 (08:46→20:12)
[2023-03-14] MEDS: FIDAXOMICIN 200 MG TAB (DIFICID) PO SCH ×2 (08:47→20:12)
[2023-03-14] MEDS: ENOXAPARIN 40MG/0.4ML SYRINGE (J1650 PER 10MG) SC SCH (08:47)
[2023-03-14] MEDS: GABAPENTIN 300 MG CAP PO SCH ×3 (08:48→20:11)
[2023-03-14] MEDS: ATORVASTATIN 20 MG TAB PO SCH (08:48)
[2023-03-14] MEDS: PRAMIPEXOLE 0.25 MG TAB PO SCH ×3 (08:48→20:12)
[2023-03-14] MEDS: PANTOPRAZOLE 20 MG TAB PO SCH (08:48)
[2023-03-14] MEDS: COSOPT OCUMETER PLUS 10ML (DORZOLAMIDE/TIMOLOL) OU SCH ×2 (08:49→20:12)
[2023-03-14] MEDS: PRIMIDONE 50MG TAB PO SCH ×2 (08:51→20:28)
[2023-03-14 08:52] VITALS: BP 120/62
[2023-03-14] MEDS: PROPRANOLOL 60MG LA CAP PO SCH (08:52)
[2023-03-14 15:27] VITALS: BP 135/65; TEMP 96.8; O2SAT 97
[2023-03-14] MEDS: ONDANSETRON 4MG 2ML VIAL IV PRN ×2 (15:36→22:28)
[2023-03-14] MEDS: LACTOBACILLUS ACIDOPHILUS CAP (BACID) PO SCH (17:57)
[2023-03-14 20:00] VITALS: BP 131/65; TEMP 96.9; O2SAT 97
[2023-03-14 23:11] VITALS: BP 130/68; TEMP 97.9; O2SAT 99
[2023-03-15 06:00] VITALS: BP 129/69; TEMP 99.3; O2SAT 99
[2023-03-15] MEDS: LEVOTHYROXINE 75MCG TABLET (0.075MG) PO SCH (06:20)
[2023-03-15] MEDS: SINEMET 25-100 MG TAB PO SCH ×2 (06:20→09:17)
[2023-03-15 06:33] LABS: HEMATOCRIT 38.8 % (42.0-52.0); HEMOGLOBIN 12.5 g/dl (13.5-17.5); MEAN CORPUSCULAR HEMOGLOBIN 29.4 pg (27.0-33.0); MEAN CORPUSCULAR HGB CONC 32.2 g/dl (32.0-36.5); MEAN CORPUSCULAR VOLUME 91.3 fl (80.0-96.0); PLATELET COUNT, AUTOMATED 173 10^3/uL (150-450); RED BLOOD COUNT 4.25 10^6/uL (4.30-6.10); WHITE BLOOD COUNT 10.6 10^3/uL (4.0-10.0)
[2023-03-15 06:51] LABS: BLOOD UREA NITROGEN 9 MG/DL (9-23); CARBON DIOXIDE LEVEL 30 MMOL/L (20-31); CHLORIDE LEVEL 103 MMOL/L (98-107); CREATININE FOR GFR 0.61 MG/DL (0.70-1.30); GLOMERULAR FILTRATION RATE > 60.0 (>42); GLUCOSE, FASTING 85 MG/DL (74-106); MAGNESIUM LEVEL 1.7 MG/DL (1.8-2.4); POTASSIUM SERUM 3.6 MMOL/L (3.5-5.1); SODIUM LEVEL 140 MMOL/L (136-145)
[2023-03-15] MEDS ORDERED: FIDA200TA PO (07:28)
[2023-03-15] MEDS ORDERED: MAGN400T2 PO (07:30)
[2023-03-15] MEDS ORDERED: RISATAB3 PO (07:30)
[2023-03-15] MEDS ORDERED: MAG SULF 1GM/100ML (MAG RUN) 1 GM in IV 1 EA IV ONE (09:00)
[2023-03-15] MEDS ORDERED: MAGNESIUM OXIDE 400MG TAB (MAG-OX) PO SCH (09:00)
[2023-03-15] MEDS: ENOXAPARIN 40MG/0.4ML SYRINGE (J1650 PER 10MG) SC SCH (09:16)
[2023-03-15] MEDS: FIDAXOMICIN 200 MG TAB (DIFICID) PO SCH (09:17)
[2023-03-15] MEDS: PRIMIDONE 50MG TAB PO SCH (09:17)
[2023-03-15] MEDS: GABAPENTIN 300 MG CAP PO SCH (09:17)
[2023-03-15] MEDS: PRAMIPEXOLE 0.25 MG TAB PO SCH (09:17)
[2023-03-15] MEDS: PROPRANOLOL 60MG LA CAP PO SCH (09:17)
[2023-03-15] MEDS: LACTOBACILLUS ACIDOPHILUS CAP (BACID) PO SCH (09:17)
[2023-03-15] MEDS: ATORVASTATIN 20 MG TAB PO SCH (09:17)
[2023-03-15] MEDS: PANTOPRAZOLE 20 MG TAB PO SCH (09:17)
[2023-03-15] MEDS: COSOPT OCUMETER PLUS 10ML (DORZOLAMIDE/TIMOLOL) OU SCH (09:18)
[2023-03-15] MEDS: OFLOXACIN 0.3 % (OCUFLOX) OPTH SOL 5ML OU SCH (09:18)
[2023-03-15] MEDS: FLUOROMETHOLONE 0.1% OPHTH SUSP 5ML BTL OU SCH (09:18)
== END 2023-03-15 10:57 | disposition home health service (06) | DRG 372 ==
LOC: M ED 10:34 → EDBD 10:34 → M ED INP 17:17 → M ICU 20:56 → M MSPAV 03-14 23:05
PROVIDERS: ADMIT Family Medicine; ATTEND Internal Medicine
PROC: B246ZZZ Ultrasonography of Right and Left Heart (ICD-10-PCS; principal; 2023-03-12)
DX: A04.72 Enterocolitis due to Clostridium difficile, not specified as recurrent (principal); I47.20 Ventricular tachycardia, unspecified; G20 Parkinson's disease; E83.42 Hypomagnesemia; E86.0 Dehydration; E78.5 Hyperlipidemia, unspecified; E66.01 Morbid (severe) obesity due to excess calories; M54.9 Dorsalgia, unspecified; G89.29 Other chronic pain; R53.1 Weakness; I10 Essential (primary) hypertension; E87.6 Hypokalemia; E03.9 Hypothyroidism, unspecified; M47.812 Spondylosis without myelopathy or radiculopathy, cervical region; K21.9 Gastro-esophageal reflux disease without esophagitis; Z87.891 Personal history of nicotine dependence; Z79.890 Hormone replacement therapy

== ENCOUNTER → 2023-03-16 | Outpatient (CLI) | payer MEDICARE, MEDICAID ==
[~2023-03-16] MED LIST changes: +FIDA200TA PO; +HYPR15DR3 OP; +LOTE5DRO9 OU; +MAGN400T2 PO; +REFR0.5D8 OU; +RISATAB3 PO
[2023-03-16 14:01] LABS: BASO # 0.1 10^3/uL (0.0-0.2); BASO % 0.6 % (0.0-1.0); EOS # 3.6 10^3/uL (0.0-0.5); HEMATOCRIT 43.7 % (42.0-52.0); HEMOGLOBIN 14.3 g/dl (13.5-17.5); LYMPH # 2.4 10^3/uL (1.5-5.0); LYMPH % 18.8 % (24.0-44.0); MEAN CORPUSCULAR HEMOGLOBIN 29.9 pg (27.0-33.0); MEAN CORPUSCULAR HGB CONC 32.7 g/dl (32.0-36.5); MEAN CORPUSCULAR VOLUME 91.4 fl (80.0-96.0); MONO # 0.8 10^3/uL (0.0-0.8); MONO % 6.1 % (2.0-8.0); NEUTROPHILS # 5.6 10^3/uL (1.5-8.5); NEUTROPHILS % 44.9 % (36.0-66.0); PLATELET COUNT, AUTOMATED 161 10^3/uL (150-450); RED BLOOD COUNT 4.78 10^6/uL (4.30-6.10); WHITE BLOOD COUNT 12.5 10^3/uL (4.0-10.0)
[2023-03-16 14:21] LABS: ALBUMIN 3.2 G/DL (3.2-5.2); ALKALINE PHOSPHATASE 86 U/L (46-116); ALT/SGPT 9 U/L (7.0-40); AST/SGOT 21 U/L (<34); BILIRUBIN,TOTAL 0.4 MG/DL (0.3-1.2); BLOOD UREA NITROGEN 9 MG/DL (9-23); CALCIUM LEVEL 8.7 MG/DL (8.3-10.6); CARBON DIOXIDE LEVEL 26 MMOL/L (20-31); CHLORIDE LEVEL 102 MMOL/L (98-107); CREATININE FOR GFR 0.57 MG/DL (0.70-1.30); GLOMERULAR FILTRATION RATE > 60.0 (>42); GLUCOSE, FASTING 74 MG/DL (74-106); POTASSIUM SERUM 4.1 MMOL/L (3.5-5.1); SODIUM LEVEL 138 MMOL/L (136-145); TOTAL PROTEIN 6.5 G/DL (5.7-8.2)
[2023-03-16 14:38] LABS: EOS % 28.4 % (0.0-3.0)
== END ==
LOC: M PLALAB 10:43
PROVIDERS: ATTEND Student in an Organized Health Care Education/Training Program
DX: E83.42 Hypomagnesemia (principal); E87.6 Hypokalemia; A04.72 Enterocolitis due to Clostridium difficile, not specified as recurrent

== ENCOUNTER → 2023-05-29 | Outpatient (CLI) | payer MEDICARE, MEDICAID ==
[2023-05-29 15:39] LABS: BASO % 0.5 % (0.0-1.0); EOS # 1.4 10^3/uL (0.0-0.5); EOS % 16.2 % (0.0-3.0); HEMATOCRIT 41.7 % (42.0-52.0); HEMOGLOBIN 13.1 g/dl (13.5-17.5); LYMPH # 1.6 10^3/uL (1.5-5.0); LYMPH % 18.9 % (24.0-44.0); MEAN CORPUSCULAR HEMOGLOBIN 29.7 pg (27.0-33.0); MEAN CORPUSCULAR HGB CONC 31.4 g/dl (32.0-36.5); MEAN CORPUSCULAR VOLUME 94.6 fl (80.0-96.0); MONO # 0.7 10^3/uL (0.0-0.8); MONO % 7.7 % (2.0-8.0); NEUTROPHILS # 4.7 10^3/uL (1.5-8.5); NEUTROPHILS % 56.1 % (36.0-66.0); PLATELET COUNT, AUTOMATED 254 10^3/uL (150-450); RED BLOOD COUNT 4.41 10^6/uL (4.30-6.10); WHITE BLOOD COUNT 8.4 10^3/uL (4.0-10.0)
[2023-05-29 15:43] LABS: ALBUMIN 3.7 G/DL (3.2-5.2); ALKALINE PHOSPHATASE 75 U/L (46-116); ALT/SGPT < 9 U/L (7.0-40); AST/SGOT 19 U/L (<34); BILIRUBIN,TOTAL 0.3 MG/DL (0.3-1.2); BLOOD UREA NITROGEN 20 MG/DL (9-23); CALCIUM LEVEL 9.3 MG/DL (8.3-10.6); CARBON DIOXIDE LEVEL 32 MMOL/L (20-31); CHLORIDE LEVEL 107 MMOL/L (98-107); CHOLESTEROL LEVEL 169 MG/DL (<200); CHOLESTEROL RISK RATIO 3.49 (<5); CREATININE FOR GFR 0.66 MG/DL (0.70-1.30); GLOMERULAR FILTRATION RATE > 60.0 (>42); GLUCOSE, FASTING 88 MG/DL (74-106); HDL CHOLESTEROL 48.4 MG/DL (>40); LDL CHOLESTEROL 86.8 MG/DL (<100); NON-HDL-C 120.6 MG/DL; POTASSIUM SERUM 4.3 MMOL/L (3.5-5.1); SODIUM LEVEL 142 MMOL/L (136-145); TOTAL PROTEIN 6.9 G/DL (5.7-8.2); TRIGLYCERIDES LEVEL 169 MG/DL (<150)
[2023-05-29 15:44] LABS: FREE T4 0.95 NG/DL (0.89-1.76); THYROID STIMULATING HORMONE 0.428 uIU/ML (0.55-4.78)
[2023-05-29 15:45] LABS: HEMOGLOBIN A1c 5.1 % (4.0-6.0)
== END ==
LOC: M PLALAB 10:04
PROVIDERS: ATTEND Student in an Organized Health Care Education/Training Program
DX: R73.01 Impaired fasting glucose (principal); E03.9 Hypothyroidism, unspecified; I10 Essential (primary) hypertension

== ENCOUNTER → 2023-12-07 | Outpatient (REF) | payer MEDICARE, MEDICAID | LOC: M SFHCDERM 17:36 | PROVIDERS: ATTEND Nurse Practitioner Family | DX: C44.319 Basal cell carcinoma of skin of other parts of face (principal); C44.229 Squamous cell carcinoma of skin of left ear and external auricular canal ==

== ENCOUNTER → 2024-02-05 | Outpatient (REF) | payer MEDICARE, MEDICAID ==
[~2024-02-05] MED LIST changes: +ONDA-282 PO; -ONDA4TAB6 PO
== END ==
LOC: M SFHCPLAZ 17:17
PROVIDERS: ATTEND Family Medicine
DX: Z00.00 Encounter for general adult medical examination without abnormal findings (principal); Z12.11 Encounter for screening for malignant neoplasm of colon

== ENCOUNTER 2024-04-27 09:47 | Inpatient (IN) | payer MEDICARE, MEDICAID ==
[~2024-04-27 09:47] MED LIST changes: +DORZ2SOL5 OD; -DORZ2SOL5 OU; +GABA-1172 PO; -GABA-282 PO
[2024-04-27 10:35] LABS: VENOUS BASE EXCESS 1.9 (-2.0-2.0); VENOUS HCO3 27.1 MMOL/L (23.0-27.0); VENOUS O2 SATURATION 80.5 % (60.0-80.0); VENOUS PARTIAL PRESSURE CO2 44.2 mmHg (38.0-50.0); VENOUS PARTIAL PRESSURE O2 40.9 mmHg (30.0-50.0); VENOUS PH 7.405 UNITS (7.330-7.430); VENOUS STANDARD HCO3 25.8 MMOL/L; VENOUS TOTAL CO2 28.4 MMOL/L (24.0-28.0)
[2024-04-27 10:41] LABS: BASO % 0.1 % (0.0-1.0); EOS % 0.1 % (0.0-3.0); HEMATOCRIT 39.2 % (42.0-52.0); HEMOGLOBIN 12.9 g/dl (13.5-17.5); LYMPH # 0.5 10^3/uL (1.5-5.0); LYMPH % 6.2 % (24.0-44.0); MEAN CORPUSCULAR HEMOGLOBIN 30.1 pg (27.0-33.0); MEAN CORPUSCULAR HGB CONC 32.9 g/dl (32.0-36.5); MEAN CORPUSCULAR VOLUME 91.6 fl (80.0-96.0); MONO # 0.6 10^3/uL (0.0-0.8); MONO % 7.4 % (2.0-8.0); NEUTROPHILS # 7.4 10^3/uL (1.5-8.5); RED BLOOD COUNT 4.28 10^6/uL (4.30-6.10); WHITE BLOOD COUNT 8.6 10^3/uL (4.0-10.0)
[2024-04-27 12:04] LABS: OSMOLALITY SERUM 304 MOSM/KG (280-301)
[2024-04-27 12:26] LABS: ALKALINE PHOSPHATASE 66 U/L (46-116); ALT/SGPT 36 U/L (7.0-40); AST/SGOT 163 U/L (<34); BILIRUBIN,DIRECT 0.4 MG/DL (<0.4); BILIRUBIN,TOTAL 1.1 MG/DL (0.3-1.2); BLOOD UREA NITROGEN 23 MG/DL (9-23); CALCIUM LEVEL 9.7 MG/DL (8.3-10.6); CARBON DIOXIDE LEVEL 30 MMOL/L (20-31); CHLORIDE LEVEL 105 MMOL/L (98-107); CPK CREATINE PHOSPHOKINASE 9476 U/L (46-171); CREATININE FOR GFR 0.64 MG/DL (0.70-1.30); GLOMERULAR FILTRATION RATE > 60.0 (>42); GLUCOSE, FASTING 116 MG/DL (74-106); POTASSIUM SERUM 4.4 MMOL/L (3.5-5.1); SODIUM LEVEL 141 MMOL/L (136-145); THYROID STIMULATING HORMONE 0.607 uIU/ML (0.55-4.78); TOTAL PROTEIN 7.4 G/DL (5.7-8.2)
[2024-04-27] MEDS: NS 1,000 ML IV SCH ×2 (13:40→15:22)
[2024-04-27 14:59] LABS: INR 1.12; PROTHROMBIN TIME 14.1 SECONDS (12.5-14.5)
[2024-04-27 15:40] VITALS: BP 130/75; TEMP 99; O2SAT 95
[2024-04-27] MEDS ORDERED: BACL10TA2 PO (16:19)
[2024-04-27] MEDS ORDERED: OXYC7.5T3 PO (16:19)
[2024-04-27] MEDS ORDERED: LEVO50TA5 PO (16:19)
[2024-04-27] MEDS ORDERED: FURO20TA2 PO (16:19)
[2024-04-27] MEDS ORDERED: HOME MED LIST COMPLETE! XX SCH (16:20)
[2024-04-27] MEDS ORDERED: CYCLOBENZAPRINE 10MG TABLET PO PRN (16:40)
[2024-04-27] MEDS ORDERED: BACLOFEN 10 MG TAB PO PRN (16:40)
[2024-04-27 17:19] LABS: PLTBLUE- EDTA FREE CALC 156 K/mm3 (172-450); PLTBLUE- EDTA FREE MACHINE 142 10^3/uL (172-450)
[2024-04-27] MEDS: SINEMET 25-100 MG TAB PO SCH (18:52)
[2024-04-27 19:31] VITALS: BP 159/89; TEMP 97.4; O2SAT 95
[2024-04-27] MEDS ORDERED: OFLOXACIN 0.3 % (OCUFLOX) OPTH SOL 5ML OU SCH (21:00)
[2024-04-27] MEDS: ONDANSETRON 4MG 2ML VIAL IV ONE (21:22)
[2024-04-27] MEDS: PRAMIPEXOLE 1 MG TAB PO SCH (21:49)
[2024-04-27] MEDS: ENOXAPARIN 40MG/0.4ML SYRINGE (J1650 PER 10MG) SC SCH (21:49)
[2024-04-27] MEDS: COSOPT OCUMETER PLUS 10ML (DORZOLAMIDE/TIMOLOL) OD SCH (21:49)
[2024-04-27] MEDS: GABAPENTIN 300 MG CAP PO SCH (21:49)
[2024-04-27] MEDS: PERCOCET 5MG/325MG TAB PO PRN (21:50)
[2024-04-27] MEDS: MIRALAX *UNIT DOSE* 17GM PACKET PO PRN (21:51)
[2024-04-28] VITALS (48 sets, daily range): BP systolic 58–201; BP diastolic 35–100; TEMP 97.7–102.9; O2SAT 88–99
[2024-04-28] MEDS: ARTIFICIAL TEARS DROPS 15ML BTL (VISINE DRY RELIEF) OU PRN (00:51)
[2024-04-28] MEDS: METOCLOPRAMIDE INJ 10MG/2ML VIAL IV ONE (00:52)
[2024-04-28] MEDS: SCOPOLAMINE 1MG TRANSDERMAL PATCH TOP ONE (03:43)
[2024-04-28 06:29] LABS: MEAN CORPUSCULAR HEMOGLOBIN 30.5 pg (27.0-33.0); MEAN CORPUSCULAR HGB CONC 33.3 g/dl (32.0-36.5); MEAN CORPUSCULAR VOLUME 91.4 fl (80.0-96.0); PLATELET COUNT, AUTOMATED 247 10^3/uL (150-450); RED BLOOD COUNT 5.25 10^6/uL (4.30-6.10); WHITE BLOOD COUNT 17.5 10^3/uL (4.0-10.0)
[2024-04-28] MEDS: LEVOTHYROXINE 50MCG TABLET (0.05MG) PO SCH (06:52)
[2024-04-28 06:59] LABS: ALBUMIN 3.4 G/DL (3.2-5.2); ALKALINE PHOSPHATASE 63 U/L (46-116); ALT/SGPT 16 U/L (7.0-40); AST/SGOT 172 U/L (<34); BILIRUBIN,TOTAL 1.4 MG/DL (0.3-1.2); BLOOD UREA NITROGEN 26 MG/DL (9-23); CALCIUM LEVEL 9.2 MG/DL (8.3-10.6); CARBON DIOXIDE LEVEL 24 MMOL/L (20-31); CHLORIDE LEVEL 105 MMOL/L (98-107); CREATININE FOR GFR 0.92 MG/DL (0.70-1.30); GLOMERULAR FILTRATION RATE > 60.0 (>42); GLUCOSE, FASTING 179 MG/DL (74-106); POTASSIUM SERUM 4.4 MMOL/L (3.5-5.1); SODIUM LEVEL 139 MMOL/L (136-145); TOTAL PROTEIN 6.6 G/DL (5.7-8.2)
[2024-04-28 07:14] LABS: CPK CREATINE PHOSPHOKINASE 5473 U/L (46-171)
[2024-04-28] MEDS: ATORVASTATIN 20 MG TAB PO SCH (08:53)
[2024-04-28] MEDS: PANTOPRAZOLE 20 MG TAB PO SCH (08:53)
[2024-04-28] MEDS ORDERED: ONDANSETRON 4MG ORAL DISINTEGRATING TAB SL PRN (09:55)
[2024-04-28] MEDS ORDERED: PIPERACILLIN/TAZOBACTAM SOD 3.375 GM in D5W MINI-BAG PLUS 50 ML IV SCH (12:40)
[2024-04-28] MEDS ORDERED: VANCOMYCIN HCL 500 MG in D5W MINI-BAG PLUS 100 ML IV SCH (12:40)
[2024-04-28] MEDS: VANCOMYCIN 1,750 MG/350 ML IV BAG *LOAD IV ONE (13:01)
[2024-04-28] MEDS: NS 1,000 ML IV ONE ×3 (13:02→16:20)
[2024-04-28] MEDS: ONDANSETRON 4MG 2ML VIAL IV PRN (13:07)
[2024-04-28] MEDS: PIPERACILLIN/TAZOBACTAM SOD 4.5 GM in D5W MINI-BAG PLUS 50 ML IV SCH (13:13)
[2024-04-28] MEDS: ACETAMINOPHEN 325 MG TAB PO PRN (13:33)
[2024-04-28] MEDS: PROMETHAZINE 25MG/ML 1ML VIAL IV ONE (15:34)
[2024-04-28] MEDS ORDERED: MORPHINE 2 MG/ML 1ML VIAL IV PRN (15:40)
[2024-04-28] MEDS ORDERED: KETOROLAC 30 MG/ML 1ML VIAL IV PRN (15:40)
[2024-04-28 17:33] LABS: ABG BASE EXCESS -6.9 (-2.0-2.0); ABG O2 SATURATION 98.8 % (95.0-99.0); ABG PARTIAL PRESSURE CO2 26.4 mmHg (35.0-45.0); ABG PARTIAL PRESSURE O2 136.6 mmHg (75.0-100.0); ABG STANDARD HCO3 18.9 MMOL/L. (22.0-26.0); ABG TOTAL CO2 16.8 MMOL/L (23.0-31.0); ABG pH (ARTERIAL) 7.401 UNITS (7.350-7.450)
[2024-04-28] MEDS: MIDAZOLAM INJ 2MG/2ML VIAL IV STA (17:52)
[2024-04-28] MEDS: SUCCINYLCHOLINE INJ 200MG/10ML VIAL IV STA (17:53)
[2024-04-28] MEDS: ETOMIDATE INJ 20MG/10ML VIAL IV STA (17:53)
[2024-04-28] MEDS ORDERED: VASOPRESSIN INJ 20UNITS/ML 1ML VIAL As Ordered ONE (18:08)
[2024-04-28] MEDS: VASOPRESSIN INJ 20 UNITS in NS 499 ML IV SCH (18:26)
[2024-04-28] MEDS: ACETAMINOPHEN *IV* 1,000 MG in IV 1 EA IV ONE (18:27)
[2024-04-28] MEDS ORDERED: fentaNYL CITRATE/NaCl 1,000 MCG in IV 1 EA IV SCH (18:35)
[2024-04-28] MEDS ORDERED: FENTANYL DRIP LOCK BOX KEY 1 EACH XX PRN (18:35)
[2024-04-28] MEDS ORDERED: LR 1,000 ML IV SCH (18:50)
[2024-04-28] MEDS ORDERED: ACETAMINOPHEN *IV* 1,000 MG in IV 1 EA IV PRN (18:50)
[2024-04-28] MEDS: MIDAZOLAM 100MG/100ML-0.9%NACL 100 MG in IV 1 EA IV SCH (18:57)
[2024-04-28 19:17] LABS: ABG BASE EXCESS -7.6 (-2.0-2.0); ABG HCO3 15.5 MMOL/L (22.0-26.0); ABG O2 SATURATION 99.5 % (95.0-99.0); ABG PARTIAL PRESSURE CO2 26.5 mmHg (35.0-45.0); ABG PARTIAL PRESSURE O2 200.5 mmHg (75.0-100.0); ABG STANDARD HCO3 18.4 MMOL/L. (22.0-26.0); ABG TOTAL CO2 16.3 MMOL/L (23.0-31.0); ABG pH (ARTERIAL) 7.385 UNITS (7.350-7.450)
[2024-04-28 19:28] LABS: ALBUMIN 2.3 G/DL (3.2-5.2); BILIRUBIN,TOTAL 1.6 MG/DL (0.3-1.2); CALCIUM LEVEL 7.5 MG/DL (8.3-10.6); CK-MB VALUE MASS 7.8 NG/ML (<3.6); CREATININE FOR GFR 2.06 MG/DL (0.70-1.30); GLOMERULAR FILTRATION RATE 34.1 (>42); POTASSIUM SERUM 5.2 MMOL/L (3.5-5.1); TOTAL PROTEIN 4.9 G/DL (5.7-8.2)
[2024-04-28 19:47] LABS: MB/CK RELATIVE INDEX 0.21 (< OR =4)
[2024-04-28] MEDS: LR 1,000 ML IV ONE (19:59)
[2024-04-28] MEDS: NOREPINEPHRINE 4MG IN D5 250ML 4 MG in IV 1 EA IV SCH (20:12)
[2024-04-28] MEDS: LR 500 ML IV ONE (21:04)
[2024-04-28] MEDS: LACTATED RINGER'S 1000 ML IV ONE (21:11)
[2024-04-28] MEDS: VANCOMYCIN 1,000MG/200 ML IV BAG IV SCH (21:54)
[2024-04-28] MEDS: SODIUM BICARBONATE 150 MEQ in STERILE WATER LITER BAG 1,000 ML IV SCH (23:19)
[2024-04-29] VITALS (42 sets, daily range): BP systolic 71–158; BP diastolic 33–91; TEMP 99.9–101.3; O2SAT 69–100
[2024-04-29] MEDS: LR 500 ML IV ONE ×3 (00:16→05:58)
[2024-04-29 00:46] LABS: ABG BASE EXCESS -11.7 (-2.0-2.0); ABG HCO3 12.7 MMOL/L (22.0-26.0); ABG O2 SATURATION 99.6 % (95.0-99.0); ABG PARTIAL PRESSURE CO2 25.8 mmHg (35.0-45.0); ABG PARTIAL PRESSURE O2 249.2 mmHg (75.0-100.0); ABG STANDARD HCO3 15.5 MMOL/L. (22.0-26.0); ABG TOTAL CO2 13.5 MMOL/L (23.0-31.0)
[2024-04-29 01:31] LABS: BILIRUBIN,TOTAL 2.4 MG/DL (0.3-1.2); CALCIUM LEVEL 7.5 MG/DL (8.3-10.6); CREATININE FOR GFR 2.43 MG/DL (0.70-1.30); GLOMERULAR FILTRATION RATE 28.1 (>42); POTASSIUM SERUM 5.4 MMOL/L (3.5-5.1); TOTAL PROTEIN 4.4 G/DL (5.7-8.2)
[2024-04-29] MEDS: VASOPRESSIN INJ 20 UNITS in NS 499 ML IV SCH (01:57)
[2024-04-29 02:16] LABS: ABG BASE EXCESS -13.5 (-2.0-2.0); ABG HCO3 13.3 MMOL/L (22.0-26.0); ABG PARTIAL PRESSURE O2 117.8 mmHg (75.0-100.0); ABG STANDARD HCO3 14.3 MMOL/L. (22.0-26.0); ABG TOTAL CO2 14.3 MMOL/L (23.0-31.0)
[2024-04-29] MEDS: SODIUM BICARBONATE 8.4% INJ 50ML SYRINGE IV STA (02:45)
[2024-04-29] MEDS: HumuLIN R (REGULAR) INSULIN (NovoLIN R) **100U/ML** PER UNIT IV STA (02:45)
[2024-04-29] MEDS: DEXTROSE 50% 50ML SYRINGE IV STA (02:45)
[2024-04-29] MEDS: PATIROMER SORBITEX CALCIUM 8.4 GM POWDER PACKET (VELTASSA) PO ONE (03:08)
[2024-04-29 05:21] LABS: MEAN CORPUSCULAR HEMOGLOBIN 30.7 pg (27.0-33.0); MEAN CORPUSCULAR HGB CONC 32.6 g/dl (32.0-36.5); MEAN CORPUSCULAR VOLUME 94.2 fl (80.0-96.0); PLATELET COUNT, AUTOMATED 157 10^3/uL (150-450); RED BLOOD COUNT 4.14 10^6/uL (4.30-6.10); WHITE BLOOD COUNT 9.9 10^3/uL (4.0-10.0)
[2024-04-29 05:33] LABS: HEMOGLOBIN 12.7 g/dl (13.5-17.5)
[2024-04-29 05:46] LABS: ALBUMIN 1.8 G/DL (3.2-5.2); CALCIUM LEVEL 7.1 MG/DL (8.3-10.6); CREATININE FOR GFR 2.67 MG/DL (0.70-1.30); GLOMERULAR FILTRATION RATE 25.2 (>42); POTASSIUM SERUM 5.2 MMOL/L (3.5-5.1)
[2024-04-29 06:14] LABS: ABG BASE EXCESS -10.4 (-2.0-2.0); ABG HCO3 14.1 MMOL/L (22.0-26.0); ABG PARTIAL PRESSURE CO2 27.8 mmHg (35.0-45.0); ABG STANDARD HCO3 16.3 MMOL/L. (22.0-26.0); ABG TOTAL CO2 14.9 MMOL/L (23.0-31.0); ABG pH (ARTERIAL) 7.322 UNITS (7.350-7.450)
[2024-04-29] MEDS: PANTOPRAZOLE 40MG VIAL IV SCH (08:35)
[2024-04-29] MEDS ORDERED: LORazepam 2 MG/ML 1ML VIAL IV PRN (09:40)
[2024-04-29] MEDS ORDERED: MORPHINE 10MG/0.5ML ORAL CONCENTRATE SOLUTION U/D SL PRN (09:40)
[2024-04-29] MEDS: MORPHINE 2 MG/ML 1ML VIAL IV PRN (10:31)
[2024-04-29] MEDS ORDERED: HEPARIN SOD (PORCINE) 5000UNITS/ML 1ML VIAL/SYRINGE SQ SCH (14:00)
== END 2024-04-29 10:46 | disposition expired | DRG 557 ==
LOC: EDBD 09:47 → M ED 09:47 → M ED INP 14:01 → OBSVTOIN 15:03 → M MSPAV 15:41 → M PCU 04-28 13:50 → M ICU 04-28 17:09
PROVIDERS: ADMIT Internal Medicine; ATTEND Internal Medicine Pulmonary Disease
PROC: 0BH17EZ Insertion of Endotracheal Airway into Trachea, Via Natural or Artificial Opening (ICD-10-PCS; principal; 2024-04-28)
PROC: 02HV33Z Insertion of Infusion Device into Superior Vena Cava, Percutaneous Approach (ICD-10-PCS; 2024-04-28)
PROC: 04HY32Z Insertion of Monitoring Device into Lower Artery, Percutaneous Approach (ICD-10-PCS; 2024-04-28)
PROC: 5A1935Z Respiratory Ventilation, Less than 24 Consecutive Hours (ICD-10-PCS; 2024-04-28)
DX: M62.82 Rhabdomyolysis (principal); J96.00 Acute respiratory failure, unspecified whether with hypoxia or hypercapnia; R65.21 Severe sepsis with septic shock; A41.9 Sepsis, unspecified organism; K56.609 Unspecified intestinal obstruction, unspecified as to partial versus complete obstruction; E87.1 Hypo-osmolality and hyponatremia; I48.92 Unspecified atrial flutter; E87.20 Acidosis, unspecified; N17.9 Acute kidney failure, unspecified; Z66 Do not resuscitate; G20.C Parkinsonism, unspecified; R26.89 Other abnormalities of gait and mobility; K21.9 Gastro-esophageal reflux disease without esophagitis; I10 Essential (primary) hypertension; E03.9 Hypothyroidism, unspecified; W19.XXXA Unspecified fall, initial encounter; Y92.003 Bedroom of unspecified non-institutional (private) residence as the place of occurrence of the external cause; M51.26 Other intervertebral disc displacement, lumbar region; E78.5 Hyperlipidemia, unspecified; M47.816 Spondylosis without myelopathy or radiculopathy, lumbar region; Z87.891 Personal history of nicotine dependence; E83.42 Hypomagnesemia; Z79.890 Hormone replacement therapy; Z79.899 Other long term (current) drug therapy; I95.9 Hypotension, unspecified; S30.1XXA Contusion of abdominal wall, initial encounter